=== PATIENT | female | born 1995 | race African-American/Black ===

== ENCOUNTER 2020-06-09 04:51 | Inpatient (IN) | payer OTHER ==
[2020-06-09] VITALS (414 sets, daily range): BP systolic 102–113; BP diastolic 62–82; PULSE 59–96; TEMP 98.1–98.9; O2SAT 91–100
[~2020-06-09] VITALS: Ht 160 cm; Wt 82.0 kg
--- NOTE | 2020-06-09 03:27 | NUR ---
Received report from [facility], RN.
--- NOTE | 2020-06-09 04:46 | NUR ---
Patient arrives to [facility] room 18 via EMS stretcher. Patient ambulates to [facility] bed with standby assistance. She is alert and oriented times four and denies any pain or discomfort, however, reports she is feeling somewhat short of breath with movement. Initial vitals within normal limits; patient is SR/ST on monitor. She arrives with a peripheral IV to the [facility]; no fluids infusing or ordered at this time. Dr. Ascencio notified of patient's arrival. Orders received for labs, EKG, and chest x-ray. Following assessment, patient provided with call light and the bed is put in the lowest position. Patient denies any further needs at this time. Will continue to monitor.
--- NOTE | 2020-06-09 04:52 | NUR ---
NOTIFIED DR BIRCH OF PT'S ARRIVAL, NEW ORDERS RECEIVED.
[2020-06-09 05:20] LABS: ARTERIAL BLD GAS O2 SATURATION 97.9 % (92-100); ARTERIAL BLD GAS TCO2 CT 22.1; ARTERIAL BLOOD GAS BASE EXCESS -1.3 (-2-2); ARTERIAL BLOOD GAS HCO3 21.2 meq/L (22-26); ARTERIAL BLOOD GAS PO2 97.9 mmHg (80-100); ARTERIAL BLOOD GAS pH 7.47 (7.35-7.45)
[2020-06-09 05:57] LABS: BASO % 0.8 % (0.0-2.0); EOS % 0.3 % (0-4.0); GRAN # 2.4 (1.4-6.5); GRAN % 61.8 % (42.2-75.2); HEMATOCRIT 42.9 % (37.0-47.0); HEMOGLOBIN 14.2 g/dl (12.5-16.0); LYMPH # 1.2 (1.2-3.4); LYMPH % 29.6 % (20.0-51.0); MEAN CELL VOLUME 90 fl (80.0-100.0); MEAN CORPUSCULAR HEMOGLOBIN 30 pg (27.0-31.0); MEAN CORPUSCULAR HGB CONC 33 g/dl (33.0-37.0); MEAN PLATELET VOLUME 12.4 fl (7.4-10.4); MONO # 0.3 (0.1-0.6); MONO % 7.2 % (1.7-9.3); PLATELET COUNT 197 K/mm3 (130-400); RED BLOOD COUNT 4.79 M/mm3 (4.10-5.30)
[2020-06-09 06:07] LABS: COLLECTION METHOD CLEAN CATCH
[2020-06-09 06:12] LABS: ALBUMIN 4.7 gm/dL (3.5-5.0); BILIRUBIN,TOTAL 0.5 mg/dL (0.0-1.0); CALCIUM 9.8 mg/dL (8.4-10.2); CREATININE, serum 0.77 (0.52-1.25); POTASSIUM 3.9 mmol/L (3.4-5.0); TOTAL PROTEIN 8.6 gm/dL (6.4-8.2)
[2020-06-09 06:12] LABS: MUCOUS Present /lpf; PH 6 (5-8); SQUAMOUS EPITHELIAL 0-2 /hpf; URINE APPEARANCE Clear; URINE BACTERIA None Seen /hpf; URINE BILIRUBIN Negative (NEGATIVE); URINE BLOOD 1+ (NEGATIVE); URINE COLOR Yellow; URINE GLUCOSE Negative (NEGATIVE); URINE KETONE Negative (NEGATIVE); URINE LEUKOCYTE ESTERASE Negative (NEGATIVE); URINE NITRATE Negative (NEGATIVE); URINE PROTEIN(semi-quant) Negative (NEGATIVE); URINE RBC 0-2 /hpf; URINE UROBILINOGEN Negative (NEGATIVE); URINE WBC 0-2 /hpf
[2020-06-09 06:20] LABS: TRICYCLIC ANTIDEPRESS URINE NEGATIVE
--- NOTE | 2020-06-09 06:30 | NUR ---
Report received from [facility] outside room to conserve PPE. Pt resting in bed wtih TV on and spouse on facetime for comfort. Will continue to monitor.
[2020-06-09 06:52] LABS: INR 1.1 (0.8-3.0); PROTHROMBIN TIME 12.1 SECONDS (9.7-12.8)
--- NOTE | 2020-06-09 08:00 | NUR ---
Assessment charted. PT doing well, deneis needs. Has pain in chest but when moves positions it diminishes. Able to tolerate PO well, denies needs for medications. Resting quietly in bed. INT to R A/C. VSS. Will continue to monitor.
--- NOTE | 2020-06-09 10:16 | NUR ---
Dr. Van to see pt at this time, no new orders received. Dr. Walters rounding shortly
--- NOTE | 2020-06-09 12:33 | NUR ---
Plan: To return home. Patient indicated that she does live alone, with her EMR and support being Nils [phone]. patient did not report relationship. She resides at [facility]. Assess: SW contacted patient by phone to complete initial intake. patient denied a use of DME and indicated that her PCP is [facility]. Patient reported that she does not have any follow up appointments. Patient reported that she gets her medications from [facility] with no concerns. Patient is currently COVID positive. No additional concerns at this time. Action: SW will continue to follow. Patient was educated about community resources.
--- NOTE | 2020-06-09 12:48 | NUR ---
Report given to AYSHA Tena who will resume care of patient once tranferred to 306. Pt will be placed in surgical mask with good tight fit, wrapped in clean blanket and transported up via w/c to new room. Pt will leave with all belongings, criteria met.
--- NOTE | 2020-06-09 13:15 | NUR ---
Patient to room 306 from [facility] by wheelchair. A&Ox3. Denies pain and discomfort. VSS. IV CDI. Assessment charted. Patient oriented to room and call light. No further needs expressed from patient. Call light within reach
--- NOTE | 2020-06-09 17:24 | NUR ---
Patient resting in bed. A&Ox4, denies pain and discomfort. VSS. IV CDI. No reported arrythmias from telemetry or patient. HRR. Patient in covid precautions and verbalizes understanding. No further needs expressed from patient. Call light within reach
--- NOTE | 2020-06-09 20:55 | NUR ---
Pt assessment completed and documented. Pt sitting up in bed at this time watching televison. Pt alert and oriented x4. INT to right ac patent and free of complications. Denies pain. Telemetry on. Pt denies any other needs at this time. Call light within reach. Will continue to monitor.
--- NOTE | 2020-06-10 02:21 | NUR ---
Pt resting in bed at this time with eyes closed. No s/s of pain seen at this time. Call light within reach.
[2020-06-10 04:00] VITALS: BP 112/72; PULSE 82; TEMP 98.5
[2020-06-10 05:35] VITALS: PULSE 76
--- NOTE | 2020-06-10 06:14 | NUR ---
Pt had uneventful shift. Pt stated she was able to get some sleep last night. INT to right AC CDI. PRN tylenol given for head pain. Pt denies any other needs Call light within reach.
[2020-06-10 07:11] LABS: BASO % 0.5 % (0.0-2.0); EOS % 0.9 % (0-4.0); GRAN # 2.2 (1.4-6.5); GRAN % 50.1 % (42.2-75.2); HEMATOCRIT 41.9 % (37.0-47.0); HEMOGLOBIN 13.9 g/dl (12.5-16.0); LYMPH # 1.6 (1.2-3.4); LYMPH % 37.7 % (20.0-51.0); MEAN CELL VOLUME 91 fl (80.0-100.0); MEAN CORPUSCULAR HEMOGLOBIN 30 pg (27.0-31.0); MEAN CORPUSCULAR HGB CONC 33 g/dl (33.0-37.0); MEAN PLATELET VOLUME 11.8 fl (7.4-10.4); MONO # 0.5 (0.1-0.6); MONO % 10.6 % (1.7-9.3); PLATELET COUNT 205 K/mm3 (130-400); RED BLOOD COUNT 4.63 M/mm3 (4.10-5.30); REDCELL DISTRIBUTION WIDTH-CV 13.2 % (11.5-14.5)
[2020-06-10 07:19] LABS: CALCIUM 9.3 mg/dL (8.4-10.2); CREATININE, serum 0.85 (0.52-1.25); MAGNESIUM 2.1 mg/dL (1.6-2.3); POTASSIUM 3.6 mmol/L (3.4-5.0)
--- NOTE | 2020-06-10 07:26 | NUR ---
Report given to AYSHA Covarrubias
--- NOTE | 2020-06-10 08:45 | NUR ---
PT IN BED. REPORTING PAIN IN LOW BACK FROM BEING UNCOMFORTABLE IN THE BED. PT ALSO REPORTING HEADACHE. THIS IS CHRONIC FOR PT. PT REQUESTED THE BLINDS WERE CLOSED. ASSESSMETN PERFORMED, MEDICATIONS GIVEN, PT APPEARS EASILY ANXIOUS. NO OTHER NEEDS AT THIS TIME.
[2020-06-10 08:55] VITALS: BP 116/70; PULSE 72; TEMP 98.1
[2020-06-10 13:03] VITALS: BP 114/56; PULSE 68; TEMP 98.9
[2020-06-10 14:35] VITALS: BP 120/84; PULSE 70; TEMP 98.7
--- NOTE | 2020-06-10 17:09 | NUR ---
PT REPORTING CHEST TIGHTNESS, POELL AWARE. NO OTHER NEEDS AT THIS TIME.
[2020-06-10] MEDS ORDERED: TYLENOL 325MG325 MG PO (17:15)
[2020-06-10] MEDS ORDERED: TOPROL XL 25MG25 MG PO (17:15)
--- NOTE | 2020-06-10 17:27 | NUR ---
PT PLEASANT, AOX4, REPORTS SOME CHEST PAIN AFTER ECHO, ECHO CAME BACK NORMAL, TELEMETRY NORMAL, TROPONINS NORMAL, POELL AWARE. DISCHARGE IN PROCESS.
--- NOTE | 2020-06-10 18:34 | NUR ---
PT DISCHARGE EDUCATION PROVIDED, PT IV REMOVED, PT TELEMETRY REMOVED, TELEMETRY BOX DISENFECTED. PT GATHERING BELONGINGS FOR DISCHARGE. PT TEXTED HER RIDE TO PICK HER UP. PT INFORMED TO PRESS CALL LIGHT WHEN RIDE ARRIVES AND PT WILL BE ESCORTED OUT WITH MASK. DISCHARGE PAPERWORK COMPLETE, WAITING ON RIDE ONLY AT THIS TIME.
--- NOTE | 2020-06-10 20:00 | NUR ---
Pts ride here at this time to pick her up. Discharge insructions provided and education on instructions provided by [employer]. INT and tele removed by [employer]. Pt denies any other questions. Pt escorted out by charge nurse at this time with all personal belongings.
== END 2020-06-10 20:00 | disposition home or self-care (01) | DRG 308 ==
LOC: IMCU 04:51 → MEDICAL 04:51
PROVIDERS: Internal Medicine
DX: R00.0 Tachycardia, unspecified (principal); U07.1 COVID-19
CPT/HCPCS: 99222-AI; 99239; J1644